=== PATIENT | male | born 1955 | race Caucasian/White ===

== ENCOUNTER → 2016-05-06 | Outpatient (CLI) | payer OTHER | LOC: MW.LAB 14:37 | PROVIDERS: ATTEND Family Medicine | DX: E83.119 Hemochromatosis, unspecified (principal) | CPT/HCPCS: 36415; 82728; 85014; 85018; 99195 ==

== ENCOUNTER 2018-08-23 06:26 | Day surgery (SDC) | payer OTHER ==
[~2018-08-23 06:26] MED LIST: Lactated Ringers 1,000 ML IV SCH
--- NOTE | 2018-08-23 07:00 | PCM.PREANE ---
Preanesthetic Assessment - Anesthesia/Transfusion/Family Hx Anesthesia History: Prior Anesthesia Without Reaction Family History of Anesthesia Reaction: No Transfusion History: No Prior Transfusion(s) Intubation History: Unknown - Review of Systems General: No Symptoms Pulmonary: No Symptoms Cardiovascular: No Symptoms Gastrointestinal: No Symptoms Neurological: No Symptoms Other: Reports: None - Physical Assessment O2 Sat by Pulse Oximetry: 93 Respiratory Rate: 16 Vital Signs: Last Vital Signs Temp 36.4 C 08/23/18 06:40 Pulse 73 08/23/18 06:40 Resp 16 08/23/18 06:40 BP 132/92 H 08/23/18 06:40 Pulse Ox 93 L 08/23/18 06:40 Height: 5 ft 8 in Weight: 79.379 kg ASA Class: 2 Mental Status: Alert & Oriented x3 Airway Class: Mallampati = 2 Dentition: Reports: Normal Dentition Thyro-Mental Finger Breadths: 3 Mouth Opening Finger Breadths: 2 ROM/Head Extension: Limited/Partial Lungs: Clear to Auscultation, Normal Respiratory Effort Cardiovascular: Regular Rate, Regular Rhythm - Allergies Allergies/Adverse Reactions: Allergies Allergy/AdvReac Type Severity Reaction Status Date / Time No Known Allergies Allergy Verified 08/18/18 10:48 - Blood Blood Available: No - Anesthesia Plan Pre-Op Medication Ordered: None - Acknowledgements Anesthesia Type Planned: General Anesthesia Pt an Appropriate Candidate for the Planned Anesthesia: Yes Alternatives and Risks of Anesthesia Discussed w Pt/Guardian: Yes Pt/Guardian Understands and Agrees with Anesthesia Plan: Yes PreAnesthesia Questionnaire HEENT History: Reports: Other (See Below) Other HEENT History: wears glasses Genitourinary History: Reports: Urinary Incontinence Other Genitourinary History: incontinence since back surgery in 1995 Musculoskeletal History: Reports: Back Pain, Chronic, Fracture, Osteoarthritis Other Musculoskeletal History: hx of fx pelvis and right hip Neurological History: Reports: Other (See Below) Other Neuro History: hx of Adhesive Arachnoiditis Psychiatric History: Reports: Depression - Past Surgical History Head Surgeries/Procedures: Reports: None HEENT Surgical History: Reports: Tonsillectomy Neurological Surgical History: Reports: Laminectomy, Lumbar Spine, Other (See Below) Other Neurological Surgeries/Procedures: insertion of Spinal cord stimulator Musculoskeletal Surgical History: Reports: Arthroscopic Knee (right), Hip Replacement (right) - SUBSTANCE USE Smoking Status *Q: Current Every Day Smoker Tobacco Use Within Last Twelve Months: Cigarettes Recreational Drug Use History: No - HOME MEDS Home Medications: Home Meds DULoxetine [Cymbalta] 60 mg PO BID 02/13/15 [History] Hydrocodone/Acetaminophen [[place] 10-325] 1 tab PO Q4H PRN MDD 6 tabs 02/13/15 [ History] Tamsulosin [Flomax] 0.4 mg PO DAILY 02/13/15 [History] Zolpidem [Ambien] 10 mg PO BEDTIME PRN 02/13/15 [History] tiZANidine [Zanaflex] 4 - 8 mg PO BEDTIME PRN 02/13/15 [History] Gabapentin [Neurontin] 600 mg PO BEDTIME 08/18/18 [History] - CURRENT (IN HOUSE) MEDS Current Meds: Current Medications Hydrocodone Bitart/Acetaminophen ([place] 325-5 Mg) 1 - 2 tab PO Q4H PRN PRN Reason: Pain Cefazolin Sodium/Dextrose 2 gm (/ Premix) 50 mls @ 100 mls/hr IV ONCALL [facility] Lactated Ringer's (Ringers, Lactated) 1,000 mls @ 100 mls/hr IV ASDIRECTED [facility]
[2018-08-23] MEDS ORDERED: fentaNYL 250 MCG/5 ML SDV ONE (07:05)
[2018-08-23] MEDS ORDERED: Ondansetron 4 MG/2 ML SDV ONE (07:05)
[2018-08-23] MEDS ORDERED: Lidocaine 2% 5 ML SDV ONE (07:05)
[2018-08-23] MEDS ORDERED: Midazolam 1 MG/ML 2 ML SDV ONE (07:05)
[2018-08-23] MEDS ORDERED: Propofol 200 MG/20 ML SDV ONE (07:05)
[2018-08-23] MEDS ORDERED: Lidocaine 1% 20 ML MDV ONE (07:41)
[2018-08-23] MEDS ORDERED: ceFAZolin 2 GM in Premix Bag 1 BAG IV SCH (08:00)
[2018-08-23] MEDS ORDERED: ceFAZolin 1 GM Vial ONE (08:28)
[2018-08-23] MEDS ORDERED: Sodium Chloride 0.9% 20 ML ONE (08:28)
[2018-08-23] MEDS ORDERED: Ketorolac 30 MG/ML SDV ONE (08:32)
[2018-08-23] MEDS ORDERED: 50% Dextrose in Water 50 ML Syringe IVPUSH PRN (08:35)
[2018-08-23] MEDS ORDERED: Atropine 0.1 MG/ML 10 ML Syringe IVPUSH PRN ×2 (08:35)
[2018-08-23] MEDS ORDERED: Albuterol 0.083% 2.5 MG/3 ML Neb Soln NEB PRN (08:35)
[2018-08-23] MEDS ORDERED: EPINEPHrine 1:10,000 1 MG/10 ML Syringe IVPUSH PRN (08:35)
[2018-08-23] MEDS ORDERED: Naloxone 0.4 MG/ML Syringe IVPUSH PRN (08:35)
[2018-08-23] MEDS ORDERED: fentaNYL 100 MCG/2 ML SDV IVPUSH PRN (08:35)
--- NOTE | 2018-08-23 08:53 | PCM.OPNOTE ---
- General Post-Op/Procedure Note Date of Surgery/Procedure: 08/23/18 Operative Procedure(s): L knee scope with PLM/PMM Post-Op Diagnosis: L knee med/lat meniscus tear, DJD left knee Anesthesia Technique: General LMA Primary Surgeon: Guerline DELGADO in mLs: 5 Condition: Good Free Text/Narrative:: #[id number]
[2018-08-23] MEDS: Acetaminophen/HYDROcodone 325-5 MG Tab PO PRN ×4 (09:50→23:55)
[2018-08-23] MEDS ORDERED: Albuterol/Ipratropium 3.0-0.5 MG/3 ML Neb Soln NEB ONE ×2 (11:09→12:57)
--- NOTE | 2018-08-23 12:43 | OR ---
SURGEON: Guerline Smith MD DATE OF PROCEDURE: 08/23/2018 PREOPERATIVE DIAGNOSIS: Left knee osteoarthritis. POSTOPERATIVE DIAGNOSES: 1. Left knee osteoarthritis. 2. Left knee medial meniscus tear. 3. Left knee lateral meniscus tear. PROCEDURE: Left knee arthroscopy with partial medial and lateral meniscectomy. PRIMARY SURGEON: Guerline Smith MD. CLINICAL LEADER: Sharmila Matos RN. ANESTHESIA: General. ESTIMATED BLOOD LOSS: 5 mL. TOURNIQUET TIME: See nursing record. COMPLICATIONS: None. DVT PROPHYLAXIS: Not indicated. IMPLANTS USED: None. BRIEF HISTORY: Ramya is a 62-year-old male, who has had complaint of progressive left knee pain. He was unable to undergo an MRI due to a history of a spinal cord stimulator in his low back. Due to his lack of response to conservative treatment, I did recommend surgical intervention. Risks and goals of the procedure were discussed with the patient and were documented preoperatively. He agreed to proceed. DESCRIPTION OF PROCEDURE: The patient was properly identified and brought to the operating room. He was transferred from the OR cart and placed on the operating room table in a supine position. General anesthesia was administered. After adequate anesthesia was obtained, a well-padded tourniquet was applied to the left lower extremity. The left lower extremity was then prepped in standard fashion using ChloraPrep solution. It was then sterilely draped. A time-out was performed to ensure correct site and procedure. Preoperative antibiotics were given. The surgical site had been marked preoperatively. An Esmarch was used to exsanguinate the left lower extremity and the tourniquet was inflated to 250 mmHg. A lateral portal arthrotomy was established. Blunt trocar and cannula were introduced into the suprapatellar pouch. Camera, inflow, and outflow were assembled. No significant synovitis was noted. The patellofemoral joint was visualized. Minimal degenerative changes were noted. The patella appeared to track centrally. I then extended down the lateral and medial gutter. No loose bodies were identified. I then entered the medial compartment. A medial portal arthrotomy was established. Complex degenerative tearing along the posterior horn of the medial meniscus was noted. Using a combination of biters and shaver, this was resected back to a stable remnant. The meniscus was again probed and the remainder was found to be stable. The joint surfaces were then inspected. Diffuse grade 2 to grade 3 chondromalacia was noted over the medial tibial plateau. Grade 2 chondromalacia was noted over the medial femoral condyle. I then entered the notch. Both the ACL and PCL were visualized and probed and found to be intact. I then entered the lateral compartment. There appeared to be degenerative tearing along the central portion of the lateral meniscus. Crystal deposition was also noted within the meniscus. Using a combination of biters and shaver, the meniscus tear was resected back to a stable remnant. It was again probed and found to be stable. Grade 1 to grade 2 degenerative changes were noted. Instruments were then removed from the knee. The portal sites were closed with 3-0 nylon. 1% lidocaine was injected along the portal tracts. Xeroform gauze was placed over the wound and a bulky dressing was applied. Tourniquet was then deflated. He was awakened from his anesthetic and transferred back to the operating room cart. He was brought to recovery room in stable condition. All needle and sponge counts were correct. RENAN / JUSTIN /[id number]
[2018-08-23] MEDS ORDERED: Nicotine 14 MG/24 Hr Patch TRDERM SCH (19:30)
[2018-08-24 07:35] VITALS: BP 132/79
[2018-08-24] MEDS: Acetaminophen/HYDROcodone 325-5 MG Tab PO PRN (08:01)
--- NOTE | 2018-08-24 08:03 | PCM.SURGPN ---
- General Info Date of Service: 08/24/18 Date of Surgery/Procedure: 08/23/18 POD#: 1 Functional Status: Reports: Pain Controlled, Tolerating Diet, Ambulating, Urinating - Review of Systems General: Reports: No Symptoms Pulmonary: Reports: No Symptoms Cardiovascular: Reports: No Symptoms Gastrointestinal: Reports: No Symptoms Musculoskeletal: Reports: Leg Pain Systems Review Comment:: pt up to chair for breakfast tolerating PO intake well pain minimally managed with [place] 5/325 - is on [place] 10/325 at home maintaining oxygen saturation >90% on room air at this time feels ready for discharge to home - Patient Data Vitals - Most Recent: Last Vital Signs Temp 97.3 F 08/24/18 07:35 Pulse 71 08/24/18 07:35 Resp 18 08/24/18 07:35 BP 132/79 08/24/18 07:35 Pulse Ox 90 L 08/24/18 07:35 Weight - Most Recent: 79.379 kg I&O - Last 24 Hours: Intake & Output 08/23/18 08/24/18 08/24/18 22:59 06:59 14:59 Intake Total 240 600 Output Total 460 700 Balance -220 -100 Med Orders - Current: Current Medications Hydrocodone Bitart/Acetaminophen ([place] 325-5 Mg) 1 - 2 tab PO Q4H PRN PRN Reason: Pain Last Admin: 08/23/18 23:55 Dose: 2 tab Nicotine (Habitrol) 14 mg TRDERM DAILY [facility] Last Admin: 08/23/18 20:19 Dose: 14 mg Discontinued Medications Albuterol (Proventil Neb Soln) 2.5 mg NEB ONETIME PRN PRN Reason: Wheezing Last Admin: 08/23/18 11:20 Dose: 2.5 mg Albuterol/Ipratropium (Duoneb 3.0-0.5 Mg/3 Ml) 3 ml NEB ONETIME ONE Stop: 08/23/18 11:10 Last Admin: 08/23/18 14:40 Dose: Not Given Albuterol/Ipratropium (Duoneb 3.0-0.5 Mg/3 Ml) 3 ml NEB ONETIME ONE Stop: 08/23/18 12:58 Last Admin: 08/23/18 13:10 Dose: 3 ml Atropine Sulfate (Atropine 0.1 Mg/Ml) 0.5 mg IVPUSH ASDIRECTED PRN PRN Reason: Hypo-perfusion Atropine Sulfate (Atropine 0.1 Mg/Ml) 1 mg IVPUSH ASDIRECTED PRN PRN Reason: Hypo-Perfusion Cefazolin Sodium (Ancef) Confirm Administered Dose 2 gm .ROUTE .STK-MED ONE Stop: 08/23/18 08:29 Dextrose/Water (Dextrose 50% In Water) 50 ml IVPUSH ASDIRECTED PRN PRN Reason: Hypoglycemia Epinephrine HCl (Epinephrine 1:10,000) 1 mg IVPUSH ASDIRECTED PRN PRN Reason: ACLS Guidelines Fentanyl (Sublimaze) Confirm Administered Dose 250 mcg .ROUTE .STK-MED ONE Stop: 08/23/18 07:06 Fentanyl (Sublimaze) 50 - 100 mcg IVPUSH Q5M PRN PRN Reason: Pain Cefazolin Sodium/Dextrose 2 gm (/ Premix) 50 mls @ 100 mls/hr IV ONCALL [facility] Lactated Ringer's (Ringers, Lactated) 1,000 mls @ 100 mls/hr IV ASDIRECTED [facility] Last Admin: 08/23/18 07:01 Dose: 100 mls/hr Sodium Chloride (Normal Saline) Confirm Administered Dose 20 mls @ as directed .ROUTE .STK-MED ONE Stop: 08/23/18 08:29 Ketorolac Tromethamine (Toradol) Confirm Administered Dose 30 mg .ROUTE .STK- MED ONE Stop: 08/23/18 08:33 Lidocaine (Xylocaine-Mpf 2%) Confirm Administered Dose 5 ml .ROUTE .STK-MED ONE Stop: 08/23/18 07:06 Lidocaine HCl (Xylocaine 1%) Confirm Administered Dose 20 ml .ROUTE .STK-MED ONE Stop: 08/23/18 07:42 Midazolam HCl (Versed 1 Mg/Ml) Confirm Administered Dose 2 mg .ROUTE .STK-MED ONE Stop: 08/23/18 07:06 Naloxone HCl (Narcan) 0.1 mg IVPUSH ASDIRECTED PRN PRN Reason: Respiratory Depression Ondansetron HCl (Zofran) Confirm Administered Dose 4 mg .ROUTE .STK-MED ONE Stop: 08/23/18 07:06 Propofol (Diprivan 20 Ml) Confirm Administered Dose 200 mg .ROUTE .STK-MED ONE Stop: 08/23/18 07:06 - Exam Wound/Incisions: Dressing Dry and Intact General: Alert, Oriented Cardiovascular: Regular Rate, Regular Rhythm Extremities: Other (exam LLE - at/ehl/gastroc 5/5, dp 2+, sensation intact distally) Physical Findings Comment:: vss afeb O2 >90% on room air - Problem List Review Problem List Initiated/Reviewed/Updated: Yes - My Orders Last 24 Hours: Active Orders 24 hr Category Date Time Status Activity as Tolerated [RC] .Routine Care 08/23/18 14:42 Active Communication Order [RC] ROUTINE Care 08/23/18 14:44 Active Notify Provider Vital Signs [RC] ASDIRECTED Care 08/23/18 08:35 Active Oxygen Therapy [RC] ASDIRECTED Care 08/23/18 14:44 Active Oxygen Therapy [RC] PRN Care 08/23/18 08:35 Inactive Ready for Discharge [RC] PER UNIT ROUTINE Care 08/23/18 08:27 Active Regular Diet [DIET] Diet 08/23/18 Lunch Active Acetaminophen/HYDROcodone [[place] 325-5 MG] Med 08/23/18 08:00 Active 1 - 2 tab PO Q4H PRN Nicotine [Habitrol] Med 08/23/18 19:30 Active 14 mg TRDERM DAILY Medication Orders Hydrocodone Bitart/Acetaminophen ([place] 325-5 Mg) 1 - 2 tab PO Q4H PRN PRN Reason: Pain Last Admin: 08/23/18 23:55 Dose: 2 tab Admin: 08/23/18 19:13 Dose: 2 tab Admin: 08/23/18 15:05 Dose: 1 tab Admin: 08/23/18 09:50 Dose: 1 tab Nicotine (Habitrol) 14 mg TRDERM DAILY [facility] Last Admin: 08/23/18 20:19 Dose: 14 mg - Assessment Assessment (Free Text/Narrative):: POD#1 L knee arthroscopy - Plan Plan (Free Text/Narrative):: will change home rx to [place] 10/325 presented rx for [place] 5/325 and this was shredded see d/ch plan and instructions f/u in clinic as scheduled
== END 2018-08-24 08:30 | disposition home or self-care (01) ==
LOC: MW.SDS 06:26 → MW.MS 14:46 → MW.SDS 08-24 08:30
PROVIDERS: ATTEND Orthopaedic Surgery
DX: M17.12 Unilateral primary osteoarthritis, left knee (principal); S83.242A Other tear of medial meniscus, current injury, left knee, initial encounter; S83.282A Other tear of lateral meniscus, current injury, left knee, initial encounter; M94.262 Chondromalacia, left knee; F17.210 Nicotine dependence, cigarettes, uncomplicated; F32.9 Major depressive disorder, single episode, unspecified; M19.90 Unspecified osteoarthritis, unspecified site; Z79.899 Other long term (current) drug therapy
CPT/HCPCS: 29880; 94640; A9270; J0690; J1885; J2001; J2250; J2405; J2704; J3010; J7120; 88304; J7620-GY